=== PATIENT | male | born 1955 | race Caucasian/White ===

== ENCOUNTER 2025-07-13 06:09 | Day surgery (SDC) | payer OTHER ==
[2025-07-11 15:05] VITALS: BMI 26.3
[2025-07-13] MEDS ORDERED: PROPOFOL 20 ML ONE (12:30)
[2025-07-13] MEDS ORDERED: LIDOCAINE HCL/PF 2% SDV 5ML VIAL ONE (12:30)
[2025-07-13] MEDS ORDERED: ROCURONIUM BROMIDE 50 MG/5 ML SYRINGE ONE (12:31)
[2025-07-13] MEDS ORDERED: SUCCINYLCHOLINE CHLORIDE 200 MG/10 ML SYRINGE ONE (12:31)
[2025-07-13] MEDS ORDERED: MIDAZOLAM HCL 2 MG/2 ML SINGLE DOSE VIAL ONE (12:31)
[2025-07-13] MEDS ORDERED: BUPIVACAINE HCL/PF 0.5% (5MG/ML) 10 ML VIAL ONE (12:44)
[2025-07-13] MEDS ORDERED: DEXAMETHASONE SOD PHOSPHATE 4 MG/1 ML VIAL ONE (13:25)
[2025-07-13] MEDS: BUPIVACAINE HCL/PF 0.5% (5 MG/ML) 30 ML VIAL IJ ONE (13:30)
[2025-07-13] MEDS ORDERED: SUGAMMADEX SODIUM 200 MG/2 ML VIAL ONE (13:47)
[2025-07-13] MEDS ORDERED: KETOROLAC TROMETHAMINE 30 MG/1 ML VIAL ONE (13:47)
[2025-07-13] MEDS ORDERED: ONDANSETRON 4 MG/2 ML VIAL ONE (13:47)
[2025-07-13] MEDS ORDERED: PROMETHAZINE HCL 25 MG/1 ML VIAL IVPB PRN (14:16)
[2025-07-13] MEDS ORDERED: ONDANSETRON 4 MG/2 ML VIAL IVPUSH PRN (14:16)
[2025-07-13] MEDS ORDERED: LACTATED RINGERS SOLUTION 1,000 ML IV SCH (14:30)
[2025-07-13] MEDS: ALBUTEROL SO4 0.083% IH SOL 2.5 MG/3 ML VIAL.NEB. NEB ONE (14:37)
[2025-07-13] MEDS: ACETAMINOPHEN 1000 MG/100 ML BAG IVPB ONE (14:43)
[2025-07-13 17:02] VITALS: RESP 20; TEMP 97.3
[2025-07-13 17:08] VITALS: BP 120/62; PULSE 68
== END 2025-07-13 17:00 | disposition home or self-care (01) ==
LOC: JASU-SURG 06:09
PROVIDERS: ATTEND Surgery
PROC: 0WHG33Z Insertion of Infusion Device into Peritoneal Cavity, Percutaneous Approach (ICD-10-PCS; principal; 2025-07-13 11:30)
DX: I12.0 Hypertensive chronic kidney disease with stage 5 chronic kidney disease or end stage renal disease (principal); N18.6 End stage renal disease; Z99.2 Dependence on renal dialysis
CPT/HCPCS: 86850; 86900; 86901; 94640; 94760; C1750; J1644